=== PATIENT | female | born 1945 | race Caucasian/White ===

== ENCOUNTER 2016-11-07 11:32 | Inpatient (IN) ==
--- NOTE | 2016-11-06 21:55 | Discharge Summary ---
<Madison Dong - Last Filed: 11/06/16 21:52> Date of Encounter: 11/06/16 - Discharge Diagnosis (1) Arthritis of knee, left Priority: Primary Status: Acute (2) Status post total knee replacement, left Priority: Primary Status: Acute (3) HTN (hypertension) Priority: Secondary Status: Chronic Qualifiers: Hypertension type: essential hypertension Qualified Code(s): I10 - Essential (primary) hypertension (4) DMII (diabetes mellitus, type 2) Priority: Secondary Status: Chronic Qualifiers: Diabetes mellitus complication status: without complication Diabetes mellitus supervisor intermediates insulin use: unspecified supervisor intermediates insulin use status Qualified Code(s): E11.9 - Type 2 diabetes mellitus without complications (5) HLD (hyperlipidemia) Priority: Secondary Status: Chronic Qualifiers: Hyperlipidemia type: pure hypercholesterolemia Qualified Code(s): E78.00 - Pure hypercholesterolemia, unspecified; E78.0 - Pure hypercholesterolemia (6) Obesity Priority: Secondary Status: Chronic Qualifiers: Obesity type: due to excess calories Obesity classification: unspecified obesity classification Serious obesity comorbidity presence: unspecified whether serious comorbidity present Qualified Code(s): E66.09 - Other obesity due to excess calories - Discharge Medications Home Medications: Aspirin Enteric Coated [Aspirin EC] 325 mg PO DAILY #21 tablet.dr 11/06/16 [Rx] OxyCODONE Immed Rel [Roxicodone 5 MG] 5 - 10 mg PO Q6HR PRN #40 tablet 11/06/16 [Rx] Carvedilol 12.5 mg PO BID 11/07/16 [History] Duloxetine HCl [Cymbalta] 60 mg PO DAILY 11/07/16 [History] Exenatide Microspheres [Bydureon Pen] 2 mg PO TU 11/07/16 [History] Furosemide [Lasix] 20 mg PO DAILY 11/07/16 [History] Lisinopril-HCTZ 10-12.5 [Prinzide 10-12.5] 1 tab PO DAILY 11/07/16 [History] Mirabegron [Myrbetriq] 50 mg PO DAILY 11/07/16 [History] Pravastatin Sodium [Pravachol] 40 mg PO DAILY 11/07/16 [History] Saxagliptin HCl [Onglyza] 2.5 mg PO DAILY 11/07/16 [History] glipiZIDE [Glipizide] 10 mg PO BID 11/07/16 [History] metFORMIN [Glucophage] 500 mg PO BID 11/07/16 [History] Allergies/Adverse Reactions: Allergies codeine Allergy (Verified 11/07/16 12:26) Palpitations contact metal agent Allergy (Verified 11/07/16 12:26) Rash Primary care physician: Chasity Keita CNP - Patient Status Disposition: Transfer Inpatient Rehab Fac Condition: Good - Discharge Instructions Follow Up With: West Whaley MD [Partnered Physician] - 12/07/16 5:05 pm Madison Dong PAC [Physician Broadband Engineer] - 11/25/16 8:00 am Chasity Keita CNP [Primary Care Provider] - - Hospital Course Hospital course: Ms. Slaughter is a 71 year old female - Time Spent with Patient Total time spent providing and/or coordinating discharge services: <West Whaley - Last Filed: 11/09/16 17:03> Date of Encounter: 11/09/16 Time of Encounter: 17:02 - Discharge Diagnosis (1) Obesity (BMI 35.0-39.9 without comorbidity) Priority: Secondary Status: Chronic (2) Arthritis of knee, left Priority: Primary Status: Chronic (3) Status post total knee replacement, left Priority: Primary Status: Acute (4) HTN (hypertension) Priority: Secondary Status: Chronic Qualifiers: Hypertension type: essential hypertension Qualified Code(s): I10 - Essential (primary) hypertension (5) DMII (diabetes mellitus, type 2) Priority: Secondary Status: Chronic Qualifiers: Diabetes mellitus complication status: without complication Diabetes mellitus shelter insulin use: unspecified shelter insulin use status Qualified Code(s): E11.9 - Type 2 diabetes mellitus without complications (6) HLD (hyperlipidemia) Priority: Secondary Status: Chronic Qualifiers: Hyperlipidemia type: pure hypercholesterolemia Qualified Code(s): E78.00 - Pure hypercholesterolemia, unspecified; E78.0 - Pure hypercholesterolemia (7) Acute blood loss anemia Priority: Primary Status: Acute Primary care physician: Chasity Keita CNP - Patient Status Functional capacity at discharge: uses cane/walker Overall status at discharge: patient is progressing back to baseline - Hospital Course Hospital course: Ms. Slaughter is a 71 year old female Status post right total knee replacement. Patient with hematocrit dropping to 27 otherwise uneventful postoperative course received antibiotics physical therapy start stable condition. Follow-up 1 week - Time Spent with Patient Total time spent providing and/or coordinating discharge services:
--- NOTE | 2016-11-06 22:01 | Physician Discharge Referral ---
ExtendedCare Referral Info Transfer To: ECF Provider in Charge after Transfer: PCP Institutional Level of Care: Skilled - Diagnosis (1) Arthritis of knee, left Priority: Primary Status: Acute (2) Status post total knee replacement, left Priority: Primary Status: Acute (3) HTN (hypertension) Priority: Secondary Status: Chronic (4) DMII (diabetes mellitus, type 2) Priority: Secondary Status: Chronic (5) HLD (hyperlipidemia) Priority: Secondary Status: Chronic (6) Obesity Priority: Secondary Status: Chronic Expected Duration of Placement: < 30 days Prognosis: Good - Transfer Medications Prescriptions: OxyCODONE Immed Rel [Roxicodone 5 MG] 5 - 10 mg PO Q6HR PRN #40 tablet PRN Reason: Pain Aspirin Enteric Coated [Aspirin EC] 325 mg PO DAILY #21 tablet. Home Medications: Aspirin Enteric Coated [Aspirin EC] 325 mg PO DAILY #21 tablet. 11/06/16 [Rx] OxyCODONE Immed Rel [Roxicodone 5 MG] 5 - 10 mg PO Q6HR PRN #40 tablet 11/06/16 [Rx] Allergies/Adverse Reactions: Allergies codeine Allergy (Verified 11/04/16 15:02) Palpitations contact metal agent Allergy (Verified 11/04/16 15:02) Rash - Respiratory Orders None Smoking Cessation: Smoking cessation has been advised. For more information, call the [place] Tobacco Quit Line at 4-975-VQIN-NOW. - Ancillary Orders May use pressure relief devices daily prn, May go on DAX w/family/respon alliance party w /meds at nurse discretion PRN - Mobility Orders Chair, Ambulate - Rehabiliation Orders Rehab Potential: Good Rehab Orders: ROM Exercises, Evaluation for Physical Therapy, Evaluation for Occupational Therapy - Treatments Skin tear care topically daily PRN per policy List/Other: Opsite dressing, leave intact until first post-operative visit. If dressing becomes >50% saturated, contact office, remove dressing and place appropriate dressing in its place. Do not allow for dressing to get wet. Ty in place, plan to remove at post-operative day #14-16. Total Joint Precautions x 6 weeks Apply cold therapy wrap 3-6x/day for 20 minutes at a time. Encourage ambulation throughout the day Use Incentive spirometer 10x/hour. Elevate affected extremity above heart as tolerated. Brace: Wear knee immobilizer at night x 2 weeks. - Diet Orders Regular CERTIFICATION: I certify that the transfer of the above named patient to an Extended Care Facility is necessary for the continuing treatment of the diagnosis listed. The above information is true and accurate reflection of patient's current condition. Confidential - Redisclosure prohibited without a patient's written consent.
[2016-11-07] MEDS ORDERED: *HR* Midazolam HCl 2 MG/2 ML VIAL ONE (11:41)
[2016-11-07] MEDS ORDERED: *HR* Propofol 200 MG/20 ML VIAL IVP ONE (11:41)
[2016-11-07] MEDS ORDERED: *HR* FentaNYL (PF) 100 MCG/2 ML VIAL ONE (11:41)
[2016-11-07] MEDS ORDERED: Dexamethasone 4 MG/ML VIAL ONE (11:42)
[2016-11-07] MEDS ORDERED: Ondansetron 4 MG/2 ML VIAL ONE (11:42)
[2016-11-07] MEDS ORDERED: Lidocaine -MPF 2% 2 ML VIAL ONE (11:42)
--- NOTE | 2016-11-07 11:53 | History & Physical Report ---
Date of Encounter: 11/07/16 Time of Encounter: 11:52 24 Hour HP Update - Instructions Instructions: If the History and Physical is less than 30 days old and was completed prior to A.M. admission and or procedure and has NOT been updated on calendar day of procedure please complete this update prior to performing procedure. - Update Patient reports changes in Medical Condition: No Changes in examination, assessment, or condition: No Changes in Medication: No Preop tests/diagnostics Reviewed: Yes Surgery Remains Indicated: Yes Consent for Planned Operative Procedure(s) Verified: Yes - Pre-Operative Checklist Preoperative Checklist Indicated: No Prophylactic Antibiotic Ordered: Yes Is VTE Prophylaxis Indicated?: Yes
--- NOTE | 2016-11-07 11:58 | Anesthesia Evaluation PreOp ---
Date of Encounter: 11/07/16 Time of Encounter: 11:56 - Past History Planned Operation: l tka Cardiac History: HTN, Hyperlipidemia Pulmonary History: Denies Any Significant HX CARPENTERS SUPERVISOR History: Denies Any Significant HX Other Medical History: Diabetes Type II (accucheck pending) Anesthesia History: No Prior Anesthetic Complications, Past Anesthesia ( hysterect, cholecyst, r shoulder, l knee arth, r knee arth) Alcohol Use: none Drug use: none Medications and Allergies Aspirin Enteric Coated [Aspirin EC] 325 mg PO DAILY #21 tablet. 11/06/16 [Rx] OxyCODONE Immed Rel [Roxicodone 5 MG] 5 - 10 mg PO Q6HR PRN #40 tablet 11/06/16 [Rx] Allergies codeine Allergy (Verified 11/04/16 15:02) Palpitations contact metal agent Allergy (Verified 11/04/16 15:02) Rash - Meds/Allergy Pre-op Review Medications Reviewed: Yes Allergies Reviewed: Yes Beta Blockers on Current Med List: No Anesthesia Results - Labs Laboratory Tests 11/04/16 11/04/16 11/04/16 15:02 15:02 15:02 Hgb 11.7 Hct 37.5 Plt Count 237 PT 10.4 INR 1.0 APTT 33.2 Sodium 144 Potassium 4.8 H Creatinine 0.96 - Imaging EKG: report reviewed (sr, lbbb, lafb) Anesthesia Exam O2 Sat Height 1.63 m Height 1.63 m Weight 97.069 kg Weight 97.069 kg O2 Sat by Pulse Oximetry 97 Vital Signs Temp Pulse Resp BP Pulse Ox 98.2 F 79 18 157/69 97 11/07/16 11:54 11/07/16 11:54 11/07/16 11:54 11/07/16 11:54 11/07/16 11:54 Height: 1.63 Weight: 97 NPO (# of Hours): > 8 - HEENT Pupil (Motor): Pupils equal, EOMI Mallampati: II Teeth: Edentulous Oral Opening: Greater than 3 - CARPENTERS SUPERVISOR LOC: Oriented CARPENTERS SUPERVISOR Motor: Normal RUE, Normal LUE, Normal RLE, Normal LLE, Normal Face CARPENTERS SUPERVISOR Sensory: Normal: RUE, LUE, RLE, LLE, Face - Cardiac Rhythm: Regular Murmur: None - Pulmonary Breath Sounds: bilateral Clear Respiratory Effort: Symmetrical Anesthesia Assess/Plan ASA Score: 2 Modified [place] Scale for Level of Consciousness: Cooperative, oriented, and tranquil Anesthetic Plan: General, Regional Monitoring Plan: Standard Monitors Recovery Plan: PACU
[2016-11-07] MEDS ORDERED: CloNIDine Patch 0.1 MG PATCH (WEEKLY) TD SCH (12:15)
[2016-11-07] MEDS ORDERED: Ringers Solution, Lactated 1,000 ML IVC SCH ×2 (12:15→18:22)
[2016-11-07] MEDS ORDERED: CeFAZolin Pre 2,000 MG/100 ML 2,000 MG/100 ML BAG IVPB ONE (12:24)
[2016-11-07] MEDS ORDERED: Bupivacaine/Clonidine Syringe 1 EACH SYRINGE ONE (13:23)
--- NOTE | 2016-11-07 13:37 | Anesthesia Procedures ---
Date of Encounter: 11/07/16 Time of Encounter: 13:35 Procedures: Anesthesia - Nerve Block Procedure Date: 11/07/16 Time: 13:35 Allergies/Adv Reactions: codeine, Pre-op Diagnosis: L knee oa Surgical Procedure: L tka Checklist: Correct Patient Identifier, Correct procedure, History checked Correct side: Left Blood Thinner: No Monitor Applied: EKG, BP, Pulse Oximetry Supplemental Oxygen via Nasal Cannula (L/min): 2 Sedation: Versed (mg): 2 Indication: Post Op Analgesia (request per dr carlos) Pre-op Neuro Deficits: No Block Type: Femoral Catheter placed: No Sterile Technique: Yes Ultrasound used: Yes Anatomy identified: Yes Visual spread of Local: Yes Neuro Stimulation: No Blood on Needle Aspiration: No Smooth Injection of Local: Yes Pain with Injection of Local: No Prep: Chlorhexadine Needle: 22 x 50 mm Stimuplex Local: 0.25% Bupivicaine w/Clonidine 20 mcg/cc Volume (cc): 40 Number of Attempts: 1 Complications: None/effective block Vitals: see rn note
[2016-11-07] MEDS ORDERED: *HR* HYDROmorphone 2 MG/ML SYRINGE ONE (14:38)
[2016-11-07] MEDS ORDERED: *HR* Promethazine 25 MG/ML VIAL IVP PRN (14:42)
--- NOTE | 2016-11-07 15:02 | Orthopedic Operative Note ---
Date of procedure: 11/07/16 Pre-op diagnosis: Left knee arthritis Post-op diagnosis: same Procedure: Procedure: Left Total knee replacement Estimated blood loss: 400 cc Hardware: Metal and polyethylene replacement. Arthrex Femur: 3 Tibia: 3 PS insert: 12 Patella: 34 Exam Under anesthesia: Full flexion and extension valgus alignment no instability Procedural Notes: Grade 4 arthritic changes lateral compartment grade 3 arthritic changes patellofemoral joint. Operative procedure: The patient was brought to the operating room and placed on the operating room table. After general anesthesia was administered the operative knee was examined. Findings were noted in the exam under anesthesia. The operative extremity was prepped and draped in sterile surgical fashion. The patient received IV antibiotics prior to skin incision. A standard midline incision was made centered over the patella. The incision was made through the skin and subcutaneous tissue. A medial parapatellar tendon approach was performed. Care was taken to preserve tissue along the medial aspect of the patella. And to protect the patella tendon. The deep MCL was released off the medial tibia. The infra patella fat pad was excised. Knee was brought into flexion. Patient noted to have grade 4 arthritic changes lateral compartment and grade 3 arthritic changes patellofemoral joint. The entry hole was made for the intramedullary femoral guide. The guide was seated in 6 degrees of valgus. Anterior cut was made followed by the distal cut. The ACL the PCL the medial and the lateral menisci were excised. The tibia was subluxed forward. The entry hole was made for the intramedullary tibial guide. Guide was seated to resect 2 mm off the more abnormal side. The knee was brought into flexion the distal femur was sized to a 3. The femoral guide was seated, the anterior cut was made followed by the posterior condylar cut, followed by the chamfer cuts. The finishing guide was seated the box cut was made and the lug holes were drilled. The tibia was sized to a 3, the tibial tray was seated and prepared with the large drill followed by the fin cutter. Trial reduction revealed full extension no varus valgus instability with the appropriate 12 PS Brigitte. The patella was everted and cut was made at the level of the insertion of the quadriceps and patella tendon. The patella was sized to a 34 the guide was seated and the lug holes are drilled. Trial reduction revealed excellent patella tracking. All trial components were removed all bony surfaces were irrigated. The tibia was cemented first followed by the femur. The 12 PS Brigitte was seated and the knee was brought into full extension. The patella was cemented and held in place with the patellar holding clamp. After the cement had hardened, the knee sat for 2 minutes with a Betadine saline solution. The knee was then irrigated out with 2 L of pulse irrigation. The knee was closed by the PA. The extensor mechanism was closed with #2 FiberWire suture and #2 PDS suture. The subcutaneous tissue was then irrigated and closed deep with #1 PDS suture superficially with 0 PDS suture and skin was closed with skin robina. The patient was then placed in a sterile dressing and a postoperative brace extubated and transferred to recovery room in stable condition. Anesthesia: BAM Surgeon: West Whaley Machine Ii Coremaker: Madison Dong Condition: stable Disposition: PACU
[2016-11-07] MEDS ORDERED: EPHEDrine 50 MG/ML VIAL ONE (15:13)
[2016-11-07] MEDS: *HR* HYDROmorphone (PF) 1 MG/ML SYRINGE IVP PRN ×3 (15:50→16:13)
[2016-11-07 15:59] LABS: Hematocrit 32.2 % (35.3-44.9); Hemoglobin 10.6 g/dL (11.5-15.4)
--- NOTE | 2016-11-07 16:25 | Anesthesia Evaluation Post Op ---
Date of Encounter: 11/07/16 Time of Encounter: 16:24 - Vital Signs Vital Signs: Vital Signs/O2 Sat/Glucose, Most Current Temp Pulse Resp BP Pulse Ox 11/07/16 16:19 97.4 F L 90 16 134/61 97 11/07/16 16:09 88 16 139/72 97 11/07/16 15:59 97.3 F L 89 16 146/64 98 11/07/16 15:49 91 17 169/72 97 11/07/16 15:39 87 16 167/76 98 11/07/16 15:29 97.7 F 86 20 173/83 100 11/07/16 14:01 73 16 166/58 99 11/07/16 13:35 75 16 186/73 95 11/07/16 13:20 74 18 174/67 98 11/07/16 12:37 98.2 F 79 18 157/69 97 - Lungs Lungs: Clear Ascult./Percussion - Airway Airway: Non-obstructed - Cardiovascular Regular Rate - Mental Status Mental Status: Alert & Oriented, Answers Appropriately - Pain Pain Scale: 6 Pain Scale used: Numeric (1 - 10) - Nausea Vomiting Nausea Vomiting: Not Present - Hydration Hydration: Ice chips, Has not voided - Discharge PostOp Status: Transfer Patient to floor Anes Supervising Prov Stmt: Pt seen/evaluated, VSS and pt has met criteria for discharge to floor. - MD Jabier
[2016-11-07] MEDS ORDERED: *HR* Enoxaparin 30 MG/0.3 ML SYRINGE SQ SCH (18:00)
[2016-11-07] MEDS ORDERED: *HR* OxyCODONE Immed Rel 5 MG TABLET PO PRN (18:22)
[2016-11-07] MEDS ORDERED: Ondansetron 4 MG/2 ML VIAL IVP PRN (18:22)
[2016-11-07] MEDS ORDERED: ceFAZolin 2,000 MG in D5% in Water 100 ML IVPB SCH (18:22)
[2016-11-07] MEDS ORDERED: Naloxone 0.4 MG/ML INJ IVP PRN (18:22)
[2016-11-07] MEDS ORDERED: D5% in Water 1,000 ML IVC PRN (18:22)
[2016-11-07] MEDS ORDERED: *HR* Dextrose 50 % in Water (Syg) 50 ML SYRINGE IVP PRN (18:22)
[2016-11-07] MEDS ORDERED: Dextrose Gel 15 GM PO PRN ×2 (18:22)
[2016-11-07] MEDS ORDERED: *HR* HYDROmorphone (PF) 1 MG/ML SYRINGE IVP PRN (18:22)
[2016-11-07] MEDS: Insulin LISPRO 300 UNITS/3 ML VIAL SQ SCH ×2 (19:10→20:55)
[2016-11-07] MEDS: *HR* GlipiZIDE 5 MG TABLET PO SCH (20:54)
[2016-11-07] MEDS: *HR* Metformin 500 MG TABLET PO SCH (20:54)
[2016-11-07] MEDS ORDERED: Temazepam 15 MG CAPSULE PO PRN (21:00)
[2016-11-07] MEDS ORDERED: Sennosides 8.6 MG TABLET PO PRN (21:00)
[2016-11-07] MEDS ORDERED: MOM Conc 10 ML UD.LIQ PO PRN (21:00)
[2016-11-07] MEDS: ceFAZolin 2,000 MG in D5% in Water 100 ML IVPB SCH (21:39)
[2016-11-08] MEDS: *HR* OxyCODONE Immed Rel 5 MG TABLET PO PRN ×4 (00:44→16:48)
[2016-11-08] MEDS: ceFAZolin 2,000 MG in D5% in Water 100 ML IVPB SCH (05:25)
[2016-11-08] MEDS: *HR* Enoxaparin 30 MG/0.3 ML SYRINGE SQ SCH ×2 (05:26→16:48)
[2016-11-08 05:35] LABS: Hematocrit 30.3 % (35.3-44.9); Hemoglobin 9.8 g/dL (11.5-15.4)
[2016-11-08 05:55] LABS: BUN/Creatinine Ratio 24 (6-26); Blood Urea Nitrogen 24 mg/dL (7-20); Calcium 9.1 mg/dL (8.6-10.8); Carbon Dioxide 30 mEq/L (19-29); Chloride 103 mEq/L (98-109); Glucose 167 mg/dL (70-99); Osmolality,Calculated 300 (280-300); Potassium 4.6 mEq/L (3.5-4.5); Sodium 141 mEq/L (136-145); eGFR For African Americans > 60 (> 60); eGFR For Non-African Americans 55 (> 60)
--- NOTE | 2016-11-08 06:42 | Orthopedics Progress Note ---
Date of Encounter: 11/08/16 Time of Encounter: 06:42 - Assessment and Plan (1) Obesity (BMI 35.0-39.9 without comorbidity) Current Visit: Yes Status: Chronic (2) Arthritis of knee, left Current Visit: Yes Status: Chronic (3) Status post total knee replacement, left Current Visit: Yes Status: Acute (4) HTN (hypertension) Current Visit: Yes Status: Chronic Qualifiers: Hypertension type: essential hypertension Qualified Code(s): I10 - Essential (primary) hypertension (5) DMII (diabetes mellitus, type 2) Current Visit: Yes Status: Chronic Qualifiers: Diabetes mellitus complication status: without complication Diabetes mellitus rat exterminator insulin use: unspecified [facility] insulin use status Qualified Code(s): E11.9 - Type 2 diabetes mellitus without complications (6) HLD (hyperlipidemia) Current Visit: Yes Status: Chronic Qualifiers: Hyperlipidemia type: pure hypercholesterolemia Qualified Code(s): E78.00 - Pure hypercholesterolemia, unspecified; E78.0 - Pure hypercholesterolemia (7) Acute blood loss anemia Current Visit: Yes Status: Acute Subjective Interval history: Patient was seen this morning doing well without complaints. Afebrile vital signs stable. Operative extremity: Neurovascularly intact Dressing clean dry and intact Calves nontender Assessment and plan: Continue with postoperative care Hemoglobin 9.8 Objective Vital signs: Vital Signs Temp Pulse Resp BP Pulse Ox 11/08/16 04:40 98.1 F 81 17 142/71 98 11/08/16 00:40 97.6 F 71 17 125/71 97 11/07/16 18:10 97.8 F 74 18 154/67 98 11/07/16 17:15 97.9 F 85 16 133/67 98 11/07/16 16:40 98.0 F 92 16 130/62 96 11/07/16 16:29 97.4 F L 85 13 129/60 95 11/07/16 16:19 90 14 134/61 97 11/07/16 16:09 88 14 139/72 97 11/07/16 15:59 97.3 F L 89 16 146/64 98 11/07/16 15:49 91 17 169/72 97 11/07/16 15:39 87 16 167/76 98 11/07/16 15:29 97.7 F 86 20 173/83 100 11/07/16 14:01 73 16 166/58 99 11/07/16 13:35 75 16 186/73 95 11/07/16 13:20 74 18 174/67 98 11/07/16 12:37 98.2 F 79 18 157/69 97 11/07/16 11:54 98.2 F 79 18 157/69 97 Intake and Output 11/07/16 11/07/16 11/08/16 15:59 23:59 07:59 Intake Total 440 / 440 250 / 250 Output Total 400 / 400 650 / 650 600 / 600 Balance -400 / -400 -210 / -210 -350 / -350 Intake: IV Fluids 100 / 100 Ancef 2,000 MG In 100 / 100 Dextrose 5% 100 ML @ 200 mls/hr IVPB Q8H [facility] Rx#: [id number] Oral 340 / 340 250 / 250 Output: Urine 600 / 600 600 / 600 Estimated Blood Loss 400 / 400 Urine Amount (Catheter) 50 / 50 Other: Weight 97.069 kg Blood Glucose* 132 243 - Labs CBC & BMP: 11/08/16 05:15 11/08/16 05:15 Labs: Abnormal lab results Hgb 9.8 g/dL (11.5-15.4) L 11/08/16 05:15 Hct 30.3 % (35.3-44.9) L 11/08/16 05:15 Potassium 4.6 mEq/L (3.5-4.5) H 11/08/16 05:15 Carbon Dioxide 30 mEq/L (19-29) H 11/08/16 05:15 BUN 24 mg/dL (7-20) H 11/08/16 05:15 Est GFR (Non-Af Amer) 55 (> 60) L 11/08/16 05:15 Glucose 167 mg/dL (70-99) H 11/08/16 05:15 POC Glucose 243 (58-89) H 11/07/16 20:45 - VTE Documentation of Mechanical Device: Venous foot pump, device Consult Discharge Plan - Plan Referrals: Chasity Keita CNP [Primary Care Provider] -
[2016-11-08] MEDS: *HR* GlipiZIDE 5 MG TABLET PO SCH ×2 (07:54→16:48)
[2016-11-08] MEDS: *HR* Metformin 500 MG TABLET PO SCH ×2 (08:04→16:48)
[2016-11-08] MEDS: Furosemide 20 MG TABLET PO SCH (08:05)
[2016-11-08] MEDS: Insulin LISPRO 300 UNITS/3 ML VIAL SQ SCH ×4 (08:06→21:20)
[2016-11-08] MEDS: (Mirabegron [Myrbetriq] 50 MG) PO SCH (08:13)
[2016-11-08] MEDS: (Saxagliptin Hcl [Onglyza] 2.5 MG) PO SCH (08:13)
--- NOTE | 2016-11-08 12:40 | Event Note ---
Date of Encounter: 11/08/16 Time of Encounter: 12:39 PCR - POD#1 - Left TKR Patient seen at bedside. Pain control: yes Participating in PT. All questions and concerns addressed. Educated on use of incentive spirometer, ambulation, and hydration. Patient educated on post-operative restrictions and care. Addressed: See above D/C plan:. ECF 11/09 or 11/10
[2016-11-08] MEDS ORDERED: (Exenatide Microspheres [Bydureon Pen] 2 MG) PO SCH (13:15)
[2016-11-09] MEDS: *HR* Enoxaparin 30 MG/0.3 ML SYRINGE SQ SCH ×2 (05:31→16:54)
[2016-11-09 05:53] LABS: Hematocrit 27.1 % (35.3-44.9); Hemoglobin 8.5 g/dL (11.5-15.4)
[2016-11-09 06:00] LABS: Calcium 9.1 mg/dL (8.6-10.8); Potassium 4.4 mEq/L (3.5-4.5)
--- NOTE | 2016-11-09 07:41 | Orthopedics Progress Note ---
Date of Encounter: 11/09/16 Time of Encounter: 07:40 - Assessment and Plan (1) Obesity (BMI 35.0-39.9 without comorbidity) Current Visit: Yes Status: Chronic (2) Arthritis of knee, left Current Visit: Yes Status: Chronic (3) Status post total knee replacement, left Current Visit: Yes Status: Acute (4) HTN (hypertension) Current Visit: Yes Status: Chronic Qualifiers: Hypertension type: essential hypertension Qualified Code(s): I10 - Essential (primary) hypertension (5) DMII (diabetes mellitus, type 2) Current Visit: Yes Status: Chronic Qualifiers: Diabetes mellitus complication status: without complication Diabetes mellitus petroleum terminal plant operator insulin use: unspecified custodial insulin use status Qualified Code(s): E11.9 - Type 2 diabetes mellitus without complications (6) HLD (hyperlipidemia) Current Visit: Yes Status: Chronic Qualifiers: Hyperlipidemia type: pure hypercholesterolemia Qualified Code(s): E78.00 - Pure hypercholesterolemia, unspecified; E78.0 - Pure hypercholesterolemia (7) Acute blood loss anemia Current Visit: Yes Status: Acute Subjective Interval history: Patient was seen this morning doing well without complaints. Afebrile vital signs stable. Operative extremity: Neurovascularly intact Dressing clean dry and intact Calves nontender Assessment and plan: Continue with postoperative care Hematocrit 27, awaiting placement Objective Vital signs: Vital Signs Temp Pulse Resp BP Pulse Ox 11/09/16 07:00 98.7 F 84 16 114/67 95 11/09/16 03:41 98.5 F 85 18 110/61 94 11/08/16 23:32 98.3 F 84 20 95/59 93 11/08/16 20:32 98.8 F 74 18 103/40 93 11/08/16 15:51 97.7 F 79 18 108/56 92 11/08/16 11:43 98.2 F 77 16 118/69 98 Intake and Output 11/08/16 11/08/16 11/09/16 15:59 23:59 07:59 Intake Total 820 / 820 120 / 120 Output Total 125 / 125 0 / 0 0 / 0 Balance 695 / 695 120 / 120 0 / 0 Intake: Oral 820 / 820 120 / 120 Output: Urine 125 / 125 0 / 0 0 / 0 Other: Meal Lunch Dinner Percent of Meal Consumed 90% 75% # Voids 1 1 1 Blood Glucose* 139 101 - Labs CBC & BMP: 11/09/16 05:21 11/09/16 05:21 Labs: Abnormal lab results Hgb 8.5 g/dL (11.5-15.4) L 11/09/16 05:21 Hct 27.1 % (35.3-44.9) L 11/09/16 05:21 BUN 35 mg/dL (7-20) H D 11/09/16 05:21 Creatinine 1.49 mg/dL (0.57-1.11) H 11/09/16 05:21 Est GFR ( Amer) 42 (> 60) L 11/09/16 05:21 Est GFR (Non-Af Amer) 35 (> 60) L 11/09/16 05:21 POC Glucose 101 (58-89) H 11/08/16 20:30 - VTE Documentation of Mechanical Device: Venous foot pump, device Consult Discharge Plan - Plan Referrals: West Whaley MD [Partnered Physician] - 12/07/16 5:05 pm Madison Dong, PAC [Physician Slabber] - 11/25/16 8:00 am Chasity Keita CNP [Primary Care Provider] -
[2016-11-09] MEDS: Insulin LISPRO 300 UNITS/3 ML VIAL SQ SCH ×4 (07:42→22:10)
[2016-11-09] MEDS: *HR* Metformin 500 MG TABLET PO SCH ×2 (07:44→16:53)
[2016-11-09] MEDS: Furosemide 20 MG TABLET PO SCH (07:44)
[2016-11-09] MEDS: *HR* GlipiZIDE 5 MG TABLET PO SCH ×2 (07:44→16:53)
[2016-11-09] MEDS: *HR* OxyCODONE Immed Rel 5 MG TABLET PO PRN (07:49)
[2016-11-09] MEDS: (Mirabegron [Myrbetriq] 50 MG) PO SCH (08:14)
[2016-11-09] MEDS: (Saxagliptin Hcl [Onglyza] 2.5 MG) PO SCH (08:14)
[2016-11-10] MEDS: *HR* Enoxaparin 30 MG/0.3 ML SYRINGE SQ SCH (05:27)
[2016-11-10] MEDS: Insulin LISPRO 300 UNITS/3 ML VIAL SQ SCH ×2 (08:37→12:42)
[2016-11-10] MEDS: (Saxagliptin Hcl [Onglyza] 2.5 MG) PO SCH (08:37)
[2016-11-10] MEDS: Furosemide 20 MG TABLET PO SCH (08:41)
[2016-11-10] MEDS: *HR* GlipiZIDE 5 MG TABLET PO SCH (08:41)
[2016-11-10] MEDS: *HR* Metformin 500 MG TABLET PO SCH (08:42)
[2016-11-10] MEDS: (Mirabegron [Myrbetriq] 50 MG) PO SCH (08:42)
[2016-11-10] MEDS ORDERED: Ondansetron ODT 4 MG TAB.RAPDIS SL PRN (09:48)
[2016-11-10 10:41] VITALS: BP 104/57
--- NOTE | 2016-11-10 12:33 | Orthopedics Progress Note ---
Date of Encounter: 11/10/16 Time of Encounter: 07:30 - Assessment and Plan (1) Arthritis of knee, left Current Visit: Yes Status: Chronic POD#3 Left TKR - Patient doing well, A&O in bed. Pain controlled. Vitals stable. Afebrile. H/H - stable Plan: Zofran added for nausea* LLE: WBAT, in knee immobilizer x 2 weeks at night. D/C to ECF likely today or tomorrow* pending Auth (2) Status post total knee replacement, left Current Visit: Yes Status: Acute (3) HTN (hypertension) Current Visit: Yes Status: Chronic Qualifiers: Hypertension type: essential hypertension Qualified Code(s): I10 - Essential (primary) hypertension (4) DMII (diabetes mellitus, type 2) Current Visit: Yes Status: Chronic Qualifiers: Diabetes mellitus complication status: without complication Diabetes mellitus custodial insulin use: unspecified custodial insulin use status Qualified Code(s): E11.9 - Type 2 diabetes mellitus without complications (5) HLD (hyperlipidemia) Current Visit: Yes Status: Chronic Qualifiers: Hyperlipidemia type: pure hypercholesterolemia Qualified Code(s): E78.00 - Pure hypercholesterolemia, unspecified; E78.0 - Pure hypercholesterolemia (6) Obesity Current Visit: Yes Status: Chronic Qualifiers: Obesity type: due to excess calories Obesity classification: unspecified obesity classification Serious obesity comorbidity presence: unspecified whether serious comorbidity present Qualified Code(s): E66.09 - Other obesity due to excess calories Subjective Principal diagnosis: s/p Left TKR Interval history: POD#3 Left TKR - Patient doing well, A&O in bed. Pain controlled. Vitals stable. Afebrile. H/H - stable - LLE: Minimal swelling, no erythema or ecchymosis noted. No calf tenderness or warmth noted. ROM limited. NV intact distally. Plan: LLE: WBAT, in knee immobilizer x 2 weeks at night. D/C to ECF likely today or tomorrow* pending Auth Objective Vital signs: Vital Signs Temp Pulse Resp BP Pulse Ox 11/10/16 10:09 98.7 F 79 16 104/57 95 11/10/16 06:52 98.4 F 83 16 106/53 94 11/10/16 04:01 98.7 F 76 16 103/43 92 11/09/16 23:38 98.9 F 94 16 114/67 96 11/09/16 19:29 98.9 F 103 18 121/69 93 11/09/16 16:45 94 120/66 11/09/16 14:39 98 F 81 16 105/58 98 Intake and Output 11/09/16 11/10/16 11/10/16 23:59 07:59 15:59 Intake Total 220 / 220 100 / 100 0 / 0 Output Total 600 / 600 400 / 400 Balance -380 / -380 -300 / -300 0 / 0 Intake: Oral 220 / 220 100 / 100 0 / 0 Output: Urine 600 / 600 400 / 400 Other: Meal Dinner Percent of Meal Consumed 25% # Voids 1 Weight 100.6 kg Blood Glucose* 105 113 154 Patient Weight 11/10/16 23:59 Weight 100.6 kg Incision: clean and dry - Labs CBC & BMP: 11/09/16 05:21 11/09/16 05:21 Labs: Abnormal lab results Hgb 8.5 g/dL (11.5-15.4) L 11/09/16 05:21 Hct 27.1 % (35.3-44.9) L 11/09/16 05:21 BUN 35 mg/dL (7-20) H D 11/09/16 05:21 Creatinine 1.49 mg/dL (0.57-1.11) H 11/09/16 05:21 Est GFR ( Amer) 42 (> 60) L 11/09/16 05:21 Est GFR (Non-Af Amer) 35 (> 60) L 11/09/16 05:21 POC Glucose 154 (58-89) H 11/10/16 11:43 - VTE Documentation of Mechanical Device: Venous foot pump, device Consult Discharge Plan - Plan Additional Instructions: Discharge Instructions: Total Knee Replacement Please call [facility] ([phone]), your Primary Care Physician, or report to the Emergency Room if you have any of the following symptoms: Nausea, vomiting, fever greater that 101.5, swelling, chest pain, shortness of breath, increased pain/redness/drainage/odor for your incision site, numbness/ tingling, or any other concerning symptoms. ACTIVITY:Weight-bearing as tolerated. You may progress off support (crutches or walker) as tolerated. MEDICATIONS: Upon discharge resume your home medications. Take all the medications as prescribed. Take a stool softener if taking narcotic pain medications. Stool softeners are only effective if you drink enough fluids. Drink 6-8 glass of water or fluids a day, unless this is not allowed for another health problem. Despite using stool softeners, if you haven't had a bowel movement in 3 days, please switch to a gentle laxative. Gentle laxatives are sold over the counter. You should have a bowel movement within 24 hours, if not call the office. You will be discharged from the hospital with a prescription for pain medication. You are encouraged to decrease the use of narcotic pain medication as tolerated. Should you require a refill, please call the office. [facility] prescribes narcotic pain medication for only 4-6 weeks after surgery. If you require pain medication beyond this time period, you may be referred to your Primary Care Physician or to the Pain Clinic for further evaluation. Plan ahead for refills on pain medication as many narcotics either need to be picked up at the office or mailed. It is best to call 48-72 hours in advance of needing a prescription refill so you don't run out of medication. To help control the post-operative pain, you may take NSAIDs (Aleve,Advil, Motrin, Ibuprofen, Naprosyn) or Tylenol as prescribed on the bottle in addition to the pain medication. ANTICOAGULATION (blood thinners): Continue your Aspirin, Lovenox or Coumadin as prescribed to help prevent a blood clot in the leg or in the lungs. As long as your incision remains dry and you tolerate the NSAIDs (Aleve, Advil, Motrin, ibuprofen, naprosyn), it is OK to use the NSAIDS while you are taking your anticoagulation medication. Should your incision start to drain, stop the NSAID and contact our office. Common symptoms of blood clot in the legs include: localized pain, swelling, calf tenderness, redness or discoloration of the skin. Blood clot in the lung symptoms include: shortness of breath, rapid pulse, sweating, and chest pain that worsens with deep breathing, coughing up blood, lightheadedness, feelings of anxiety. If you experience any of these symptoms notify your physician immediately, go to the emergency room, or if having trouble breathing, call 911. WOUND CARE: Leave the dressing on for 7 to 10days. You may change the dressing if it becomes saturated greater than 50%. Do not get the dressing wet at anytime. Wash your hands with antibacterial soap, rinse and dry prior to any wound care. If you have robina the visiting nurse or rehab facility can remove the stapes 10-14 days after surgery and place steri-strips across the wound. Leave the steri-strips in place until they fall off on their won. You may let water from the shower run on top of the steri-strips. If you do not have a visiting nurse or rehab facility, you will need to return to the office at 10-14 days for the robina to be removed. If you have itching or redness around the dressing call the office. FOLLOW-UP: Please follow up with your surgeon in the orthopedic clinic in 4 weeks from the day of surgery. If you have robina that need to be removed, you will need to come back to the office in 10-14 days from the day of surgery. Referrals: West Whaley MD [Partnered Physician] - 12/07/16 5:05 pm Madison Dong PAC [Physician Cigarette Machine Operator] - 11/25/16 8:00 am Chasity Keita CNP [Primary Care Provider] -
== END 2016-11-10 14:50 | DRG 470 ==
LOC: SAMDAY 11:32 → 3NENU 17:56
PROVIDERS: ADMIT Orthopaedic Surgery; ATTEND Orthopaedic Surgery